=== PATIENT | female | born 1965 | race Caucasian/White ===

== ENCOUNTER 2024-04-13 17:40 | Emergency (ER) | payer OTHER ==
[~2024-04-13] VITALS: Ht 165.1 cm; Wt 49.9 kg
[~2024-04-13 17:40] MED LIST: Amiodarone HCl 50 MG / ML 3 ML Amp IV ONE; Calcium Chloride 10% 10 ML SYR IV ONE; EPINEPhrine HCl 0.1 MG/ML 10ML SYR XX ONE; Sodium Bicarb 8.4% 50 mEq Syringe IV ONE
== END 2024-04-13 20:42 ==
LOC: ER 17:40
DX: I46.9 Cardiac arrest, cause unspecified (principal); J45.909 Unspecified asthma, uncomplicated
CPT/HCPCS: 31500; 82947; 92950; 96374; 96375; 99285-25; J0282